=== PATIENT | male | born 1975 | race Caucasian/White ===

== ENCOUNTER 2021-09-09 19:20 | Inpatient (IN) | payer OTHER, SELFPAY ==
--- NOTE | ~2021-09-09 | FL_ITS ---
EXAMINATION: XR FLUOROSCOPY WITH IMAGES CLINICAL INFORMATION: Cystoscopy, retrograde stent placement COMPARISON: CT abdomen on 09/09/2021 TECHNIQUE: Fluoroscopy performed by Dr. Rene Hayden. Fluoroscopy time: 39.1 seconds DAP: 18.17 mGy Images: 3 FINDINGS: Fluoroscopy provided during right-sided retrograde nephrostogram and ureteral stent placement. FL/FL guidance in OR IMPRESSION: Fluoroscopy by the urology department. Please see operative report for additional information.
--- NOTE | ~2021-09-09 | XR_ITS ---
EXAMINATION: XR ABDOMEN KUB CLINICAL INDICATION: Abdominal pain COMPARISON: None TECHNIQUE: AP view of the abdomen. FINDINGS: The bowel gas pattern is normal with no evidence of ileus or obstruction. No unusual soft tissue calcifications are noted. The bones are unremarkable. XR/XR KUB IMPRESSION: Unremarkable examination.
--- NOTE | ~2021-09-09 | CT_ITS ---
EXAMINATION: CT ABDOMEN AND PELVIS WITHOUT CONTRAST CLINICAL INFORMATION: Right flank and lower abdominal pain COMPARISON: None TECHNIQUE: Multidetector volumetric imaging was performed from the superior aspect of the liver through the pubic symphysis. Sagittal and coronal reformatted images were obtained on the technologist's workstation. This CT examination was performed using dose optimization techniques as appropriate, variously including the following: *Automated exposure control *Adjustment of mA and/or kV according to patient size (this includes techniques or standardized protocols for targeted exams where dose is matched to indication/reason for exam; i.e. extremities or head) *Use of iterative reconstruction technique DLP: 807 mGy-cm FINDINGS: LUNG BASES: The visualized lung bases are unremarkable. LIVER, GALLBLADDER, AND BILIARY TREE: The liver is normal in size, shape, and attenuation. No focal hepatic lesion or biliary ductal dilatation is present. The gallbladder is unremarkable with no evidence of radiopaque gallstones, gallbladder wall thickening, or obvious pericholecystic inflammatory changes. PANCREAS: Unremarkable. SPLEEN: Unremarkable. ADRENAL GLANDS: Unremarkable. KIDNEYS AND URETERS: Right: There is an obstructing 7 x 4 x 8 mm calculus present in the proximal right ureter with associated right-sided hydronephrosis and perinephric stranding. This stone measures 1446 Hounsfield units and is 16.5 cm from the posterior axillary line. No other calculi are seen. No renal masses are seen. Left: Left kidney appears unremarkable aside from the presence of a single punctate 2 mm nonobstructing calculus. Left ureter is normal. BLADDER: Unremarkable. GASTROINTESTINAL TRACT: A small hiatal hernia is present. The small and large bowel are unremarkable. The appendix is unremarkable. ABDOMINAL WALL: No significant hernia is appreciated. LYMPH NODES: Normal. VASCULAR: Unremarkable. PELVIC VISCERA: Prostate and seminal vesicles unremarkable OSSEOUS STRUCTURES: Degenerative changes present in the spine most marked at L5-S1. CT/CT abdomen pelvis wo con IMPRESSION: 1. 7 x 4 x 8 mm obstructing right proximal ureteral calculus with associated hydronephrosis. 2. Tiny punctate nonobstructing left renal calculus. Fleischner guidelines were followed.
[2021-09-09 19:26] VITALS: BP 186/116; PULSE 91; RESP 18; TEMP 36.9; O2SAT 96; BMI 30.4
[2021-09-09] MEDS: Ondansetron ODT 4 MG TAB.RAPDIS TRANSLINGU (21:02)
--- NOTE | 2021-09-09 21:30 | ED.ABDPAIN ---
HPI - Abdominal Pain General Chief Complaint: Abdominal Pain Stated Complaint: Constipated Time Seen by Provider: 09/09/21 21:12 Source: patient Mode of arrival: ambulatory Limitations: no limitations History of Present Illness HPI narrative: Patient 45 years old with no significant past medical history been having pain in the right flank and right abdomen for last 1 week after returning from fluid unable to move his bowels since then feel nauseated vomited multiple x2 days ago and today also 1 time felt very restless and uncomfortable pain is mostly in right flank and right lower abdomen no fever no chills no urinary symptoms no hematuria feels abdomen is slightly bloated Related Data Allergies Allergy/AdvReac Type Severity Reaction Status Date / Time No Known Allergies Allergy Verified 09/09/21 20:50 Review of Systems Review of Systems Yes all other systems are reviewed and are negative [facility] Social History Social History Advance Directives: No Advance Directives Information Provided: No Physical Exam ED Vital Signs: Vital Signs - 24 hr 09/09/21 19:26 09/09/21 21:31 Temperature 98.4 F 98.8 F Pulse Rate 91 90 Respiratory Rate 18 18 Blood Pressure 186/116 H 193/120 H Pulse Oximetry 96 97 BMI result Body Mass Index 30.4 Appearance: Alert. Oriented X3. Moderate to severe distress actively vomiting Eyes: No pallor/ icterus ENT: Pharynx normal. Oral Mucosa moist Neck: Normal inspection. Neck supple. CVS: Normal heart rate and rhythm. Pulses normal. Respiratory: No respiratory distress. Equal air entry bilateral, no wheezing/rales/rhonchi Abdomen: Soft , tenderness in right mid quadrant with guarding no rebound tenderness sounds are present, no mass palpable, R CVA tenderness Skin: Skin warm and dry. Normal skin color. Normal skin turgor. Extremities: No lower extremity edema. No calf tenderness Neuro: Oriented X 3. No motor deficit. No sensory deficit.No cerebellar signs , cranial nerves II-XII intact MDM - Abdominal Pain MDM Narrative Medical decision making narrative: Patient with no significant past medical history with acute onset of right workup showed 7 x 4 x 8 mm right proximal ureteric stone with hydronephrosis lab workup showed creatinine of 1.87. Patient still having pain case discussed with Dr. Hayden urologist will admit patient to hospitalist service plan to do lithotripsy in the morning Lab Data Attestation: I reviewed the patient's lab results. Result diagrams: 09/09/21 21:38 09/09/21 21:38 Labs: Lab Results 09/09/21 09/09/21 09/09/21 Range/Units 21:38 21:38 21:38 WBC 10.3 (4.8-10.8) X10*3/uL RBC 5.73 (4.60-5.80) X10*6/uL Hgb 16.8 (14.0-18.0) g/dl Hct 49.5 (42.0-52.0) % MCV 86.4 (80.0-98.0) fL MCH 29.3 (27.0-33.0) pg MCHC 33.9 (31.0-36.0) g/dl RDW 12.2 (11.0-16.0) % Plt Count 238 (160-400) X10*3/uL MPV 9.0 L (9.4-12.4) fL Immature Gran % (Auto) 0.2 (0.0-0.4) % Neut % (Auto) 83.8 H (45-73) % Lymph % (Auto) 9.6 L (20-40) % [place] % (Auto) 5.8 (2-11) % Eos % (Auto) 0.3 (0-4) % Baso % (Auto) 0.3 (0-2) % Lymph # (Auto) 1.0 L (1.2-4.9) X10*3/uL [place] # (Auto) 0.6 (0.1-1.2) X10*3/uL Eos # (Auto) 0.0 (0.0-0.4) X10*3/uL Baso # (Auto) 0.0 (0.0-0.2) X10*3/uL Abs Immat Gran (auto) 0.02 (0.00-0.03) X10*3/uL Absolute Neuts (auto) 8.6 H (2.0-8.3) x10*3/uL Absolute Nucleated RBC 0.000 (0.0-0.012) X10*3/uL Nucleated RBC % (auto) 0.0 (0.0-0.2) /100WBC Sodium 141 (135-145) mmol/L Potassium 4.3 (3.3-5.1) mmol/L Chloride 103 (96-108) mmol/L Carbon Dioxide 27 (22-29) mmol/L Anion Gap 15 (12-20) BUN 15 (9-16) mg/dL Creatinine 1.87 H (0.5-1.4) mg/dL Estim Creat Clear Calc 74.2 Estimated GFR 39 Random Glucose 117 H (60-115) mg/dL Calcium 9.5 (8.4-10.2) mg/dL Total Bilirubin 0.9 (0.0-1.0) mg/dL AST 19 (5-37) U/L ALT 19 (0-40) U/L Alkaline Phosphatase 51 (39-117) U/L Total Protein 7.5 (6.5-8.0) g/dL Albumin 4.7 (3.5-5.0) g/dL Lipase 46 (8-78) U/L COVID-19 (GUERRERO) Negative (Negative) COVID-19 Clin Com See Note Imaging Data CT scan - abdomen: Attestation: I personally reviewed and interpreted this imaging study as follows: Radiologist's impression: [address] [address] [address] Scan Report Signed Patient: Mike Yin MR#: [id number] : 1975 Acct:[id number] Age/Sex: 45 / M ADM Date: 09/09/21 Loc: .ED Attending Dr: Ordering Physician: Danilo Garcia MD Date of Service: 09/09/21 Procedure(s): CT abdomen pelvis wo con Accession Number(s): [id number] cc: Danilo Garcia MD~ EXAMINATION: CT ABDOMEN AND PELVIS WITHOUT CONTRAST? CLINICAL INFORMATION: Right flank and lower abdominal pain? COMPARISON: None? TECHNIQUE: Multidetector volumetric imaging was performed from the superior aspect of the liver through the pubic symphysis. Sagittal and coronal reformatted images were obtained on the technologist's workstation.? This CT examination was performed using dose optimization techniques as appropriate, variously including the following: *Automated exposure control *Adjustment of mA and/or kV according to patient size (this includes techniques or standardized protocols for targeted exams where dose is matched to indication/reason for exam; i.e. extremities or head) *Use of iterative reconstruction technique DLP: 807 mGy-cm FINDINGS: LUNG BASES: The visualized lung bases are unremarkable.? LIVER, GALLBLADDER, AND BILIARY TREE: The liver is normal in size, shape, and attenuation. No focal hepatic lesion or biliary ductal dilatation is present. The gallbladder is unremarkable with no evidence of radiopaque gallstones, gallbladder wall thickening, or obvious pericholecystic inflammatory changes.? PANCREAS: Unremarkable.? SPLEEN: Unremarkable.? ADRENAL GLANDS: Unremarkable.? KIDNEYS AND URETERS: Right: There is an obstructing 7 x 4 x 8 mm calculus present in the proximal right ureter with associated right-sided hydronephrosis and perinephric stranding. This stone measures 1446 Hounsfield units and is 16.5 cm from the posterior axillary line. No other calculi are seen. No renal masses are seen. Left: Left kidney appears unremarkable aside from the presence of a single punctate 2 mm nonobstructing calculus. Left ureter is normal. BLADDER: Unremarkable.? GASTROINTESTINAL TRACT: A small hiatal hernia is present. The small and large bowel are unremarkable. The appendix is unremarkable.? ABDOMINAL WALL: No significant hernia is appreciated.? LYMPH NODES: Normal. VASCULAR: Unremarkable. PELVIC VISCERA: Prostate and seminal vesicles unremarkable? OSSEOUS STRUCTURES: Degenerative changes present in the spine most marked at L5-S1.? CT/CT abdomen pelvis wo con IMPRESSION: 1.? 7 x 4 x 8 mm obstructing right proximal ureteral calculus with associated hydronephrosis. 2.? Tiny punctate nonobstructing left renal calculus.? ? Fleischner guidelines were followed. Dictated By: Manuelito Vyas MD Signed By: <Electronically signed by Manuelito Vyas MD in OV> 09/09/212209 DD/ 56 TD/TT:? Ct Tech: VADIM Critical Care Time Critical Care Time Critical Care Time: Yes Total Critical Care Time: 35 Attestation: I spent 35 minutes of critical care, with interventions, assessments, speaking to patient, consultants, and family. Discharge Plan Discharge Clinical Impression: Kidney stone on right side, Acute renal failure Patient Disposition: Admitted As Inpatient
[2021-09-09 21:31] VITALS: BP 193/120; PULSE 90; RESP 18; TEMP 37.1; O2SAT 97
[2021-09-09 21:48] LABS: MANUAL DIFF FLAG NO
[2021-09-09 21:52] LABS: Basophils Percent Auto 0.3 % (0-2); Eosinophils Percent Auto 0.3 % (0-4); Hematocrit 49.5 % (42.0-52.0); Hemoglobin 16.8 g/dl (14.0-18.0); Imm Gran Abs Auto 0.02 X10*3/uL (0.00-0.03); Imm Gran Pct Auto 0.2 % (0.0-0.4); Lymphocytes Percent Auto 9.6 % (20-40); Mean Corpuscular HGB Conc 33.9 g/dl (31.0-36.0); Mean Corpuscular Hemoglobin 29.3 pg (27.0-33.0); Mean Corpuscular Volume 86.4 fL (80.0-98.0); Monocytes Absolute Auto 0.6 X10*3/uL (0.1-1.2); Monocytes Percent Auto 5.8 % (2-11); Neutrophils Absolute Auto 8.6 x10*3/uL (2.0-8.3); Neutrophils Percent Auto 83.8 % (45-73); Platelet Count 238 X10*3/uL (160-400); Red Blood Count 5.73 X10*6/uL (4.60-5.80); Red Cell Distribution Width 12.2 % (11.0-16.0); White Blood Count 10.3 X10*3/uL (4.8-10.8)
[2021-09-09] MEDS: ondansetron HCL 4 MG/2 ML VIAL IVPUSH (21:55)
[2021-09-09] MEDS: Morphine Sulfate 4 MG/ML CARTRIDGE IVPUSH (21:55)
[2021-09-09] MEDS: 0.9 % Sodium Chloride 1,000 ML 999 ML IV ×2 (21:55→22:30)
[2021-09-09 22:05] LABS: COVID-19 Test Negative (Negative)
[2021-09-09 22:09] LABS: Alanine Aminotransferase 19 U/L (0-40); Albumin Level 4.7 g/dL (3.5-5.0); Alkaline Phosphatase 51 U/L (39-117); Anion Gap 15 (12-20); Aspartate Amino Transferase 19 U/L (5-37); Bilirubin Total 0.9 mg/dL (0.0-1.0); Blood Urea Nitrogen 15 mg/dL (9-16); Calcium 9.5 mg/dL (8.4-10.2); Carbon Dioxide 27 mmol/L (22-29); Chloride 103 mmol/L (96-108); Creatinine Clr Calc Pharmacy 74.2; Estimated Glomerular Filt Rate 39; Glucose Random 117 mg/dL (60-115); Lipase 46 U/L (8-78); Potassium 4.3 mmol/L (3.3-5.1); Sodium 141 mmol/L (135-145); Total Protein 7.5 g/dL (6.5-8.0)
[2021-09-09] MEDS: HYDROmorphone HCl 1 MG/ML SYRINGE IVPUSH (22:28)
--- NOTE | 2021-09-09 22:43 | PM.IMHP ---
History of Present Illness Date of Service: 09/09/21 Chief Complaint: Right flank pain 45-year-old male with the past medical history of hypothyroidism, depression presented to the hospital today with a chief complaint of nausea/vomiting/right flank pain. Patient reports that over the past 1 week she has been having nausea vomiting and abdominal discomfort; for the past 2 days he has been having increased pain in the right flank; hence decided to come to the ER for further evaluation. Denies any fever chills cough. Denies any blood in the urine. Denies any chest pain or palpitations. Review of all other systems is negative except mentioned above ER course: Per ER team patient noted to have right flank tenderness; CT scan showed right proximal ureteral calculus-obstructing as well as hydronephrosis. Notified Dr. Hayden from Urology who suggested admission to the medicine service. Patient also noted to have MATTY. [facility] Pertinent family history: Denies any family history of kidney stones Social History Advance Directives: No Advance Directives Information Provided: No Meds Allergies Allergy/AdvReac Type Severity Reaction Status Date / Time No Known Allergies Allergy Verified 09/09/21 20:50 Active Medications: Current Medications Sodium Chloride (Ns) 1,000 mls @ 999 mls/hr IV .Q1H1M ONE Stop: 09/09/21 23:24 Last Admin: 09/09/21 22:30 Dose: 999 mls/hr Documented by: Home Medications Medication Instructions Recorded Confirmed Last Taken Type levothyroxine 88 mcg tablet 1 tab PO DAILY 09/10/21 09/10/21 Unknown History (Synthroid) sertraline 50 mg tablet 1 tab PO DAILY 09/10/21 09/10/21 Unknown History Physical Exam Vital Signs and Narrative: Vital Signs: Last Vital Signs Temp 98.8 F 09/09/21 21:31 Pulse 90 09/09/21 21:31 Resp 18 09/09/21 21:31 BP 193/120 H 09/09/21 21:31 Pulse Ox 97 09/09/21 21:31 BMI result Body Mass Index 30.4 Gen: Appears be in no acute distress HEENT: NCAT, Moist mucosa. Pulmonary: Vesicular breath sounds, fair air entry CVS: Normal S1-S2 Abdomen: BS+, Soft, Nontender; tender in the right flank Extremities: Warm well perfused Neuro: Alert and awake. Results Labs CBC and Chem 7: 09/09/21 21:38 09/09/21 21:38 Labs: Laboratory Results - last 24 hr 09/09/21 09/09/21 09/09/21 21:38 21:38 21:38 MCV 86.4 MCH 29.3 MCHC 33.9 RDW 12.2 Plt Count 238 MPV 9.0 L Immature Gran % (Auto) 0.2 Neut % (Auto) 83.8 H Lymph % (Auto) 9.6 L [place] % (Auto) 5.8 Eos % (Auto) 0.3 Baso % (Auto) 0.3 Lymph # (Auto) 1.0 L [place] # (Auto) 0.6 Eos # (Auto) 0.0 Baso # (Auto) 0.0 Abs Immat Gran (auto) 0.02 Absolute Neuts (auto) 8.6 H Absolute Nucleated RBC 0.000 Nucleated RBC % (auto) 0.0 Anion Gap 15 Estim Creat Clear Calc 74.2 Estimated GFR 39 Random Glucose 117 H Calcium 9.5 Total Bilirubin 0.9 AST 19 ALT 19 Alkaline Phosphatase 51 Total Protein 7.5 Albumin 4.7 Lipase 46 COVID-19 (GUERRERO) Negative COVID-19 Clin Com See Note Imaging Radiologist's Impressions: Impressions KUB X-Ray 09/09/21 19:40 IMPRESSION: Unremarkable examination. Abdomen/Pelvis CT 09/09/21 21:57 IMPRESSION: 1. 7 x 4 x 8 mm obstructing right proximal ureteral calculus with associated hydronephrosis. 2. Tiny punctate nonobstructing left renal calculus. Fleischner guidelines were followed. Assessment and Plan (1) Ureteral calculi: Status: Acute (2) Hydronephrosis: Status: Acute (3) Hypertensive urgency: Status: Acute (4) MATTY (acute kidney injury): Status: Acute Plan 45-year-old male with no significant past medical history presented to the hospital with a chief complaint of right flank pain/nausea/vomiting; noted to have right ureteral calculus with hydronephrosis as well as MATTY. Admitted for further management. Right ureteral calculus with hydronephrosis: CT scan showed 7x4x8 mm obstructing right proximal ureteral calculus. Neurology consult Dr. Hayden was notified Pain control Urinalysis pending MATTY: Likely prerenal as patient has been having nausea vomiting and poor oral intake over the past few days. Gentle IV fluids. Hypertensive urgency: Likely pain given driven. Pain control. Labetalol p.r.n.. History of hypothyroidism/depression: Continue home levothyroxine/sertraline. DVT prophylaxis: Subcu heparin Code status: Full code Quality Stroke Does the patient have a stroke diagnosis?: No VTE Prior VTE?: No VTE Risk Level:: Medical - moderate - high VTE Device Contraindication: Treatment Not Indicated VTE Drug Contraindication: N/A - Med Ordered
[2021-09-09 23:09] LABS: Appearance Urine CLEAR; Color Urine YELLOW; Glucose Urine UA NEG (NEG); Leukocyte Esterase Urine NEG (NEG); Nitrite Urine NEG (NEG); PH 6.5 (5.0-8.0); UACC Culture Trigger NO; Urine Blood 3+ (NEG); Urine Ketones 40 MG/DL (NEG); Urine Protein NEG (NEG-TRACE)
[2021-09-09 23:22] LABS: WBC Urine 0-2 /HPF (0-4)
[2021-09-09 23:23] LABS: Squamous Epithelial Cell Urine TRACE /LPF
[2021-09-10] VITALS (13 sets, daily range): BP systolic 131–185; BP diastolic 82–109; PULSE 71–89; RESP 14–18; TEMP 36.1–37.2; O2SAT 94–98
[2021-09-10] MEDS: HYDROmorphone HCl 1 MG/ML SYRINGE 0.5 MG IVPUSH ×2 (00:51→18:06)
[2021-09-10] MEDS: Heparin Sodium,Porcine 5,000 UNIT/ML VIAL 5000 UNIT SUBCUT ×2 (00:52→09:05)
--- NOTE | 2021-09-10 01:43 | PC.NURSE ---
Patient arrived in excruciating abdominal pain 10/. iv and labs drawn, ct scan, and kub. CT scan showed large kidney stone being admitted for possible stone removal tomorrow. Urology consult. Will continue with plan of care.
[2021-09-10 06:33] LABS: MANUAL DIFF FLAG NO
--- NOTE | 2021-09-10 06:39 | PHA.MEDREC ---
Pharmacy Consult ? Medication Reconciliation Pharmacy has reviewed the medication reconciliation completed by Sayra. Josefa Sinclair, PharmD
[2021-09-10 06:46] LABS: Basophils Percent Auto 0.3 % (0-2); Eosinophils Percent Auto 0.3 % (0-4); Hematocrit 45.1 % (42.0-52.0); Hemoglobin 15.2 g/dl (14.0-18.0); Imm Gran Abs Auto 0.03 X10*3/uL (0.00-0.03); Imm Gran Pct Auto 0.3 % (0.0-0.4); Lymphocytes Absolute Auto 1.4 X10*3/uL (1.2-4.9); Lymphocytes Percent Auto 15.1 % (20-40); Mean Corpuscular HGB Conc 33.7 g/dl (31.0-36.0); Mean Corpuscular Hemoglobin 29.5 pg (27.0-33.0); Mean Corpuscular Volume 87.4 fL (80.0-98.0); Mean Platelet Volume 9.7 fL (9.4-12.4); Monocytes Absolute Auto 1.1 X10*3/uL (0.1-1.2); Monocytes Percent Auto 11.1 % (2-11); Neutrophils Percent Auto 72.9 % (45-73); Platelet Count 218 X10*3/uL (160-400); Red Blood Count 5.16 X10*6/uL (4.60-5.80); Red Cell Distribution Width 12.2 % (11.0-16.0); White Blood Count 9.6 X10*3/uL (4.8-10.8)
[2021-09-10 07:20] LABS: Anion Gap 15 (12-20); Blood Urea Nitrogen 13 mg/dL (9-16); Calcium 8.3 mg/dL (8.4-10.2); Carbon Dioxide 24 mmol/L (22-29); Chloride 104 mmol/L (96-108); Creatinine Clr Calc Pharmacy 97.7; Estimated Glomerular Filt Rate 54; Glucose Random 97 mg/dL (60-115); Potassium 3.8 mmol/L (3.3-5.1); Sodium 139 mmol/L (135-145)
[2021-09-10] MEDS: Levothyroxine Sodium 88 MCG TABLET PO (09:05)
[2021-09-10] MEDS: Sertraline HCL 50 MG TABLET PO (09:05)
[2021-09-10] MEDS: Acetaminophen 325 MG TABLET 650 MG PO ×2 (09:13→18:05)
--- NOTE | 2021-09-10 09:18 | PC.NURSE ---
medicated for pain w apap, declined dilaudid, nad,, aware npo, ate eggs and toast at 0730
--- NOTE | 2021-09-10 10:06 | MHC.CM.PN ---
Met with patient in regards to discharge planning. Patient lives with his and kids, ambulates independently and had no services prior to coming to the hospital. Patient is employed time checker. No services anticipated to be needed because patient is not homebound. PCP verified. Copy of HCP obtained from PCP. Patient received 3 Pfizer vaccines. Patient's will transport him home when medically stable. Continue to monitor for d/c needs.
--- NOTE | 2021-09-10 11:46 | PC.NURSE ---
patient currently sleeping, vitals have been stable, will continue to monitor.
--- NOTE | 2021-09-10 12:30 | P.PNIM_ITS ---
Subjective Subjective Date of Service: 09/10/21 Interval History: cc: flank pain interval history: intermittent pain Cardiovascular Cardiovascular: Reports no additional cardiovascular complaints Respiratory Respiratory: Reports no additional respiratory complaints Physical Exam Vital Signs: Vital Signs: Last Vital Signs Temp 99.0 F 09/10/21 11:28 Pulse 76 09/10/21 11:28 Resp 16 09/10/21 11:28 BP 173/106 H 09/10/21 11:28 Pulse Ox 94 09/10/21 11:28 O2 Del Method 09/10/21 11:28 BMI result Body Mass Index 30.4 General: AO X 3, no acute distress Resp: CTA bilateral, no accessory muscles used CVS: S1,S2,RRR GI: soft, non tender, non distended Neuro: motor grossly intact, alert Psych: appropriate affect, appropriate insight Objective Data Active Medications Acetaminophen (Acetaminophen 325 Mg Tablet) 650 mg PO Q6H PRN PRN Reason: Pain, Mild (Pain Scale 1-3) Last Admin: 09/10/21 09:13 Dose: 650 mg Documented By: YAZMIN Heparin Sodium (Porcine) (Heparin Sodium,Porcine 5,000 Unit/Ml Vial) 5,000 unit SUBCUT Q8H [facility] Last Admin: 09/10/21 09:05 Dose: 5,000 unit Documented By: YAZMIN Hydromorphone HCl (Hydromorphone Hcl 1 Mg/Ml Syringe) 0.5 mg IVPUSH Q4H PRN; Protocol PRN Reason: Pain, Severe (Pain Scale 7-10) Last Admin: 09/10/21 00:51 Dose: 0.5 mg Documented By: MANPREET Levothyroxine Sodium (Levothyroxine Sodium 88 Mcg Tablet) 88 mcg PO DAILY [facility] Last Admin: 09/10/21 09:05 Dose: 88 mcg Documented By: YAZMIN Melatonin (Melatonin 3 Mg Tablet) 6 mg PO BEDTIME PRN PRN Reason: Insomnia Senna (Sennosides 8.6 Mg Tablet) 17.2 mg PO BEDTIME PRN PRN Reason: Constipation Sertraline HCl (Sertraline Hcl 50 Mg Tablet) 50 mg PO DAILY [facility] Last Admin: 09/10/21 09:05 Dose: 50 mg Documented By: YAZMIN Sodium Chloride (0.9 % Sodium Chloride Flush 3 Ml Syringe) 3 ml IVFLUSH QSHIFT [facility] Last Admin: 09/10/21 03:06 Dose: Not Given Documented By: LAURIE Non-Admin Reason: IV Running Labs CBC & Chem 7: 09/10/21 04:55 09/10/21 04:55 Labs: Laboratory Results - last 24 hr 09/09/21 09/09/21 09/09/21 21:38 21:38 21:38 MCV 86.4 MCH 29.3 MCHC 33.9 RDW 12.2 Plt Count 238 MPV 9.0 L Immature Gran % (Auto) 0.2 Neut % (Auto) 83.8 H Lymph % (Auto) 9.6 L [place] % (Auto) 5.8 Eos % (Auto) 0.3 Baso % (Auto) 0.3 Lymph # (Auto) 1.0 L [place] # (Auto) 0.6 Eos # (Auto) 0.0 Baso # (Auto) 0.0 Abs Immat Gran (auto) 0.02 Absolute Neuts (auto) 8.6 H Absolute Nucleated RBC 0.000 Nucleated RBC % (auto) 0.0 Anion Gap 15 Estim Creat Clear Calc 74.2 Estimated GFR 39 Random Glucose 117 H Calcium 9.5 Total Bilirubin 0.9 AST 19 ALT 19 Alkaline Phosphatase 51 Total Protein 7.5 Albumin 4.7 Lipase 46 Urine Color Urine Appearance Urine pH Ur Specific [place] Urine Protein Urine Glucose (UA) Urine Ketones Urine Blood Urine Nitrite Ur Leukocyte Esterase Urine RBC Urine WBC Ur Squamous Epith Cells Urine Bacteria COVID-19 ([facility]ERO) Negative COVID-19 Clin Com See Note 09/09/21 09/10/21 09/10/21 22:59 04:55 04:55 MCV 87.4 MCH 29.5 MCHC 33.7 RDW 12.2 Plt Count 218 MPV 9.7 Immature Gran % (Auto) 0.3 Neut % (Auto) 72.9 Lymph % (Auto) 15.1 L [place] % (Auto) 11.1 H Eos % (Auto) 0.3 Baso % (Auto) 0.3 Lymph # (Auto) 1.4 [place] # (Auto) 1.1 Eos # (Auto) 0.0 Baso # (Auto) 0.0 Abs Immat Gran (auto) 0.03 Absolute Neuts (auto) 7.0 Absolute Nucleated RBC 0.000 Nucleated RBC % (auto) 0.0 Anion Gap 15 Estim Creat Clear Calc 97.7 Estimated GFR 54 Random Glucose 97 Calcium 8.3 L D Total Bilirubin AST ALT Alkaline Phosphatase Total Protein Albumin Lipase Urine Color YELLOW Urine Appearance CLEAR Urine pH 6.5 Ur Specific [place] 1.020 Urine Protein NEG Urine Glucose (UA) NEG Urine Ketones 40 Urine Blood 3+ H Urine Nitrite NEG Ur Leukocyte Esterase NEG Urine RBC 10-14 H Urine WBC 0-2 Ur Squamous Epith Cells TRACE Urine Bacteria NONE COVID-19 ([facility]) COVID-19 Clin Com Assessment and Plan (1) MATTY (acute kidney injury): Status: Acute Plan 45M presented with right flank pain, found to have matty and obstructing right stone with hydronephrosis Right nephrolithiasis with hydronephrosis and flank pain complicated by acute kidney injury Pain control Plan for cystoscopy today MATTY likely mostly prerenal, possible component obstruction, monitor Hypertension Possibly has underlying hypertension, versus due to pain Monitor for now, may need to start treatment as outpatient. Hypothyroid Synthroid Mood disorder Sertraline DVT prophylaxis with heparin Full code reason for continued hospitalization: need for intervention inpaitent due to ongoing sever pain needing iv opiates Quality Stroke Does the patient have a stroke diagnosis?: No VTE Prior VTE?: No VTE Risk Level:: Medical - moderate - high VTE Device Contraindication: Treatment Not Indicated VTE Drug Contraindication: N/A - Med Ordered
--- NOTE | 2021-09-10 13:24 | PC.NURSE ---
pt continues to sleep, family at bedside, will continue to monitor
--- NOTE | 2021-09-10 15:58 | P.CONAN_ITS ---
HPI - Anesthesia Eval Consult details Narrative: 45 M for cysto GERD PMFSH Active Problems Active Problems: All Active Problems (Updated 09/09/21 @ 22:44 by Zachary Burks MD) MATTY (acute kidney injury) (Acute) Hypertensive urgency (Acute) Hydronephrosis (Acute) Ureteral calculi (Acute) Past Medical History Functional capacity: independent ambulation Family History Family history of problems with anesthesia: No Surgical History History of Problems with Anesthesia: No Social History Social History service: No Current occupational status: employed Meds Allergies Allergy/AdvReac Type Severity Reaction Status Date / Time No Known Allergies Allergy Verified 09/09/21 20:50 Active Medications: Current Medications Acetaminophen (Acetaminophen 325 Mg Tablet) 650 mg PO Q6H PRN PRN Reason: Pain, Mild (Pain Scale 1-3) Last Admin: 09/10/21 09:13 Dose: 650 mg Heparin Sodium (Porcine) (Heparin Sodium,Porcine 5,000 Unit/Ml Vial) 5,000 unit SUBCUT Q8H [facility] Last Admin: 09/10/21 09:05 Dose: 5,000 unit Hydromorphone HCl (Hydromorphone Hcl 1 Mg/Ml Syringe) 0.5 mg IVPUSH Q4H PRN; Protocol PRN Reason: Pain, Severe (Pain Scale 7-10) Last Admin: 09/10/21 00:51 Dose: 0.5 mg Levothyroxine Sodium (Levothyroxine Sodium 88 Mcg Tablet) 88 mcg PO DAILY [facility] Last Admin: 09/10/21 09:05 Dose: 88 mcg Melatonin (Melatonin 3 Mg Tablet) 6 mg PO BEDTIME PRN PRN Reason: Insomnia Senna (Sennosides 8.6 Mg Tablet) 17.2 mg PO BEDTIME PRN PRN Reason: Constipation Sertraline HCl (Sertraline Hcl 50 Mg Tablet) 50 mg PO DAILY [facility] Last Admin: 09/10/21 09:05 Dose: 50 mg Sodium Chloride (0.9 % Sodium Chloride Flush 3 Ml Syringe) 3 ml IVFLUSH QSHIFT [facility] Last Admin: 09/10/21 03:06 Dose: Not Given Home Medications Medication Instructions Recorded Confirmed Last Taken Type levothyroxine 88 mcg tablet 1 tab PO DAILY 09/10/21 09/10/21 Unknown History (Synthroid) sertraline 50 mg tablet 1 tab PO DAILY 09/10/21 09/10/21 Unknown History Exam Exam Date and Time: September 10, 2021 1558 Height,Weight and Vital Signs: Height 6 ft 7 in Weight 122.47 kg Last Vital Signs Temp 98.8 F 09/10/21 15:40 Pulse 74 09/10/21 15:40 Resp 16 09/10/21 15:40 BP 157/100 H 09/10/21 15:40 Pulse Ox 98 09/10/21 15:40 O2 Del Method 09/10/21 15:40 Pertinent Lab Results Pertinent Lab Results: Laboratory Tests 09/09/21 09/09/21 09/09/21 21:38 21:38 21:38 WBC 10.3 RBC 5.73 Hgb 16.8 Hct 49.5 MCV 86.4 MCH 29.3 MCHC 33.9 RDW 12.2 Plt Count 238 MPV 9.0 L Immature Gran % (Auto) 0.2 Neut % (Auto) 83.8 H Lymph % (Auto) 9.6 L [place] % (Auto) 5.8 Eos % (Auto) 0.3 Baso % (Auto) 0.3 Lymph # (Auto) 1.0 L [place] # (Auto) 0.6 Eos # (Auto) 0.0 Baso # (Auto) 0.0 Abs Immat Gran (auto) 0.02 Absolute Neuts (auto) 8.6 H Absolute Nucleated RBC 0.000 Nucleated RBC % (auto) 0.0 Sodium 141 Potassium 4.3 Chloride 103 Carbon Dioxide 27 Anion Gap 15 BUN 15 Creatinine 1.87 H Estim Creat Clear Calc 74.2 Estimated GFR 39 Random Glucose 117 H Calcium 9.5 Total Bilirubin 0.9 AST 19 ALT 19 Alkaline Phosphatase 51 Total Protein 7.5 Albumin 4.7 Lipase 46 Urine Color Urine Appearance Urine pH Ur Specific [place] Urine Protein Urine Glucose (UA) Urine Ketones Urine Blood Urine Nitrite Ur Leukocyte Esterase Urine RBC Urine WBC Ur Squamous Epith Cells Urine Bacteria COVID-19 ([facility]) Negative COVID-19 Clin Com See Note 09/09/21 09/10/21 09/10/21 22:59 04:55 04:55 WBC 9.6 RBC 5.16 Hgb 15.2 Hct 45.1 MCV 87.4 MCH 29.5 MCHC 33.7 RDW 12.2 Plt Count 218 MPV 9.7 Immature Gran % (Auto) 0.3 Neut % (Auto) 72.9 Lymph % (Auto) 15.1 L [place] % (Auto) 11.1 H Eos % (Auto) 0.3 Baso % (Auto) 0.3 Lymph # (Auto) 1.4 [place] # (Auto) 1.1 Eos # (Auto) 0.0 Baso # (Auto) 0.0 Abs Immat Gran (auto) 0.03 Absolute Neuts (auto) 7.0 Absolute Nucleated RBC 0.000 Nucleated RBC % (auto) 0.0 Sodium 139 Potassium 3.8 Chloride 104 Carbon Dioxide 24 Anion Gap 15 BUN 13 Creatinine 1.42 H Estim Creat Clear Calc 97.7 Estimated GFR 54 Random Glucose 97 Calcium 8.3 L D Total Bilirubin AST ALT Alkaline Phosphatase Total Protein Albumin Lipase Urine Color YELLOW Urine Appearance CLEAR Urine pH 6.5 Ur Specific [place] 1.020 Urine Protein NEG Urine Glucose (UA) NEG Urine Ketones 40 Urine Blood 3+ H Urine Nitrite NEG Ur Leukocyte Esterase NEG Urine RBC 10-14 H Urine WBC 0-2 Ur Squamous Epith Cells TRACE Urine Bacteria NONE COVID-19 ([facility]) COVID-19 Clin Com Airway Mallampati Class: III TM Dist: >3cm Neck ROM: Full Loose/Missing/Broken Teeth: Yes (chipped teeth ) Assessment and Plan Assessment Anesthesia Assessment: Anesthesia Plan Discussed and Chart Reviewed Final Anesthetic Review Family History of Problems with Anesthesia: No History of Problems with Anesthesia: No NPO: Yes ASA Class: II and Emergency Final Preanesthetic Review: Meds/Allgs Chart Reviewed, Consent Obtained/Reviewed and Anes Risks/Benef Reviewed Patient Risk: Intermediate Procedure Risk: Intermediate Anesthetic Plan Anesthetic Plan: GA Disposition: Standard PACU
--- NOTE | 2021-09-10 16:14 | PM.UROCN ---
History of Present Illness Consult details Consult date: 09/10/21 Narrative: Mike is a 45-year-old male Present to hospital with right-sided flank pain 7 mm right-sided proximal ureteric stone associated with hydronephrosis Creatinine 1.4, WBC 9.6, UA 3+ blood, 2+ protein Recommendation for cystoscopy, right retrograde, right stent placement and follow-up definitive procedure Review of Systems Constitutional: Constitutional: Denies chills and Denies fever(s) Cardiovascular: Cardiovascular: Reports no additional cardiovascular complaints and Denies syncope Respiratory: Respiratory: Denies cough Gastrointestinal: Gastrointestinal: Denies abdominal pain and Denies heartburn Genitourinary: Genitourinary: Reports as per HPI and Denies change in libido Neurologic: Denies syncope Psychiatric: Psychiatric: Denies change in libido Endocrine: Endocrine: Denies change in libido [facility] Past Medical History Functional capacity: independent ambulation Social History Social History service: No Current occupational status: employed Meds Allergies Allergy/AdvReac Type Severity Reaction Status Date / Time No Known Allergies Allergy Verified 09/09/21 20:50 Active Medications: Current Medications Acetaminophen (Acetaminophen 325 Mg Tablet) 650 mg PO Q6H PRN PRN Reason: Pain, Mild (Pain Scale 1-3) Last Admin: 09/10/21 09:13 Dose: 650 mg Heparin Sodium (Porcine) (Heparin Sodium,Porcine 5,000 Unit/Ml Vial) 5,000 unit SUBCUT Q8H [facility] Last Admin: 09/10/21 09:05 Dose: 5,000 unit Hydromorphone HCl (Hydromorphone Hcl 1 Mg/Ml Syringe) 0.5 mg IVPUSH Q4H PRN; Protocol PRN Reason: Pain, Severe (Pain Scale 7-10) Last Admin: 09/10/21 00:51 Dose: 0.5 mg Levothyroxine Sodium (Levothyroxine Sodium 88 Mcg Tablet) 88 mcg PO DAILY [facility] Last Admin: 09/10/21 09:05 Dose: 88 mcg Melatonin (Melatonin 3 Mg Tablet) 6 mg PO BEDTIME PRN PRN Reason: Insomnia Senna (Sennosides 8.6 Mg Tablet) 17.2 mg PO BEDTIME PRN PRN Reason: Constipation Sertraline HCl (Sertraline Hcl 50 Mg Tablet) 50 mg PO DAILY [facility] Last Admin: 09/10/21 09:05 Dose: 50 mg Sodium Chloride (0.9 % Sodium Chloride Flush 3 Ml Syringe) 3 ml IVFLUSH QSHIFT [facility] Last Admin: 09/10/21 03:06 Dose: Not Given Home Medications Medication Instructions Recorded Confirmed Last Taken Type levothyroxine 88 mcg tablet 1 tab PO DAILY 09/10/21 09/10/21 Unknown History (Synthroid) sertraline 50 mg tablet 1 tab PO DAILY 09/10/21 09/10/21 Unknown History Physical Exam Vital Signs: Vital Signs: Last Vital Signs Temp 97.9 F 09/10/21 16:04 Pulse 89 09/10/21 16:13 Resp 18 09/10/21 16:13 BP 137/82 09/10/21 16:13 Pulse Ox 97 09/10/21 16:13 O2 Del Method 09/10/21 16:13 BMI result Body Mass Index 30.4 Const: General: cooperative, healthy appearing, comfortable and no acute distress Orientation/consciousness: patient oriented x3 HEENT: Face and sinus: Yes normal facial exam Mouth: moist mucous membranes Neck: Neck: Yes normal visual inspection, Yes full ROM and Yes trachea midline Chest: Chest palpation & inspection: normal inspection of the chest Resp: Effort & Inspection: normal respiratory effort, able to speak in complete sentences and no respiratory distress GI: Inspection: Yes normal to inspection Back/Spine/Pelvis: Cervical Spine: normal cervical lordosis Thoracic/Lumbar Spine: thoracic and lumbar spine normal to inspection Skin: General skin exam: no rashes or lesions noted Neuro: General: patient oriented x3, gait normal, tone normal and moves all extremities Extrem: General: Yes normal to inspection and Yes capillary refill normal Results Labs Result diagrams: 09/10/21 04:55 09/10/21 04:55 Labs: Abnormal lab results 09/09/21 09/09/21 09/09/21 Range/Units 21:38 21:38 22:59 MPV 9.0 L (9.4-12.4) fL Neut % (Auto) 83.8 H (45-73) % Lymph % (Auto) 9.6 L (20-40) % [place] % (Auto) (2-11) % Lymph # (Auto) 1.0 L (1.2-4.9) X10*3/uL Absolute Neuts (auto) 8.6 H (2.0-8.3) x10*3/uL Creatinine 1.87 H (0.5-1.4) mg/dL Random Glucose 117 H (60-115) mg/dL Calcium (8.4-10.2) mg/dL Urine Blood 3+ H (NEG) Urine RBC 10-14 H (0) /HPF 09/10/21 09/10/21 Range/Units 04:55 04:55 MPV (9.4-12.4) fL Neut % (Auto) (45-73) % Lymph % (Auto) 15.1 L (20-40) % [place] % (Auto) 11.1 H (2-11) % Lymph # (Auto) (1.2-4.9) X10*3/uL Absolute Neuts (auto) (2.0-8.3) x10*3/uL Creatinine 1.42 H (0.5-1.4) mg/dL Random Glucose (60-115) mg/dL Calcium 8.3 L D (8.4-10.2) mg/dL Urine Blood (NEG) Urine RBC (0) /HPF Short CBC 09/09/21 09/10/21 Range/Units 21:38 04:55 WBC 10.3 9.6 (4.8-10.8) X10*3/uL Hgb 16.8 15.2 (14.0-18.0) g/dl Hct 49.5 45.1 (42.0-52.0) % Plt Count 238 218 (160-400) X10*3/uL BMP 09/09/21 09/10/21 21:38 04:55 Sodium 141 139 Potassium 4.3 3.8 Chloride 103 104 Carbon Dioxide 27 24 BUN 15 13 Creatinine 1.87 H 1.42 H Calcium 9.5 8.3 L D Liver Function 09/09/21 Range/Units 21:38 Total Bilirubin 0.9 (0.0-1.0) mg/dL AST 19 (5-37) U/L ALT 19 (0-40) U/L Alkaline Phosphatase 51 (39-117) U/L Albumin 4.7 (3.5-5.0) g/dL Urine 09/09/21 Range/Units 22:59 Urine Color YELLOW Urine Appearance CLEAR Urine pH 6.5 (5.0-8.0) Ur Specific [place] 1.020 (1.005-1.025) Urine Protein NEG (NEG-TRACE) MG/DL Urine Glucose (UA) NEG (NEG) MG/DL All other labs normal. Assessment and Plan (1) Ureteral calculi: Status: Acute (2) Hydronephrosis: Status: Acute Plan Risks, benefits and alternatives to therapy were discussed. These include but are not limited to infection, bleeding, damage to local organs and tissues, need for further interventions. Anesthetic risks regarding cardiac arrhythmia, blood clots, and potential mortality were discussed. The patient understands the typical recovery time and the outpatient nature of the procedure. After consideration of these risks the patient gives full informed consent and they wish to move ahead with the procedure. Cystoscopy, right retrograde, right stent placement Procedures Date of Service Date of Service: 09/10/21
--- NOTE | 2021-09-10 16:35 | MHC.SHP ---
Pre-Procedural Eval Section A Date of Service: 09/10/21 The patient is an INPATIENT: Yes Changes since office visit: No Cold of Flu in the past 2 weeks, No New Medical Problems, No Changes in Medication and No Patient answered all questions The History & Physical has been completed within 30 days and I have reviewed it.: Yes Section B Chief Complaint: Renal colic Details of Present Illness: right retrograde stent placement Allergies: Allergies Allergy/AdvReac Type Severity Reaction Status Date / Time No Known Allergies Allergy Verified 09/09/21 20:50 Plan Diagnosis/Plan: Unchanged I have reviewed the history and physical and performed a pertinent physical examination on my patient. No changes have occurred unless specified.
--- NOTE | 2021-09-10 17:03 | P.OP_ITS ---
Operative Note Operative Note Date of Service: 09/10/21 Narrative: PreOperative Diagnosis: right proximal stone Post Operative Diagnosis: same Procedure: cysto, right retrograde, stent placement Surgeon: Dr Rene Hayden Anesthesia: LMA Indications for procedure: obstructing stone 10 mm Procedure: After informed consent was verified the patient was brought to the operating room and placed in a supine position. Anesthesia was administered per protocol. The patient was placed in modified dorsal lithotomy position and prepped and draped in a sterile fashion. A safety pause time-out was performed. Laterality of procedure and antibiotics were confirmed. appropriate imaging was available A 22 [place] cystoscope was introduced per urethra. No abnormality was noted. Both ureteric orifices were seen in a normal position. The right ureter was cannulated with an open ended catheter and a retrograde examination was performed. filling defect in proximal ureter . A Sensor guidewire was placed under fluoroscopy and a good coil was seen within the renal pelvis. A 6Fr x variable length was advanced over the wire and up to the level of the renal pelvis under fluoroscopic and direct visualization. The stent was seen with appropriate coil within the renal pelvis and in the bladder after deployment. The patient tolerated the procedure well and was transferred in stable condition to the recovery area. Pathology: none Drains: cook 6F x variable JJ
[2021-09-10] MEDS: Phenazopyridine HCL 100 MG TABLET PO (18:06)
--- NOTE | 2021-09-10 18:48 | PM.DS ---
DS: Providers Provider Date of Service: 09/10/21 Date of admission: 09/09/21 22:41 Primary care physician: Alvin Oh MD Consults: 09/09/21 22:40 Consult to Urology Routine Consulting Provider: Rene Hayden Reason for consultation: Renal colic with hydronephrosis DS: Diagnosis Discharge Diagnosis (1) Ureteral calculi: Status: Acute (2) Hydronephrosis: Status: Acute DS: Summary Hospital Course Hospital Course: from initial hpi: Chief Complaint: Right flank pain 45-year-old male with the past medical history of hypothyroidism, depression presented to the hospital today with a chief complaint of nausea/vomiting/right flank pain.? Patient reports that over the past 1 week she has been having nausea vomiting and abdominal discomfort; for the past 2 days he has been having increased pain in the right flank; hence decided to come to the ER for further evaluation.? Denies any fever chills cough.? Denies any blood in the urine.? Denies any chest pain or palpitations.? Review of all other systems is negative except mentioned above ER course: Per ER team patient noted to have right flank tenderness; CT scan showed right proximal ureteral calculus-obstructing as well as hydronephrosis.? Notified Dr. Hayden from Urology who suggested admission to the medicine service.? Patient also noted to have MATTY. hospital course: patient was admitted for flank pain from obstructing right ureteral stone complicated by hydronephrosis and MATTY. he was given pain cotnrol, fluids. renal function improved. he underwent cystoscopy with stent placement. course was complicated by elevated blood pressures. he will be discharged home on flomax, should follow up with urology and follow up bmp. will hold off on antihypertensives for now, bp should be monitored closely and bp meds started if persistently elevated. for hypothyroid continued on synthroid, for mood disorder continued on sertraline. Time Spent with Patient Time attestation: Total time spent providing and/or coordinating discharge services: Discharge coordination time: Greater than 30 minutes Quality: Safe Use of Opioids Does Pt have an Active Cancer Diagnosis on the Problem List?: No Quality: Stroke Does the patient have a stroke diagnosis?: No Physical Exam Vital Signs: Vital Signs: Last Vital Signs Temp 97.0 F 09/10/21 18:39 Pulse 71 09/10/21 18:39 Resp 18 09/10/21 18:39 BP 165/98 H 09/10/21 18:39 Pulse Ox 95 09/10/21 18:39 O2 Del Method 09/10/21 18:39 O2 Flow Rate 6 09/10/21 17:22 BMI result Body Mass Index 30.4 General: AO X 3, no acute distress Resp: CTA bilateral, no accessory muscles used CVS: S1,S2,RRR GI: soft, non tender, non distended Neuro: motor grossly intact, alert Psych: appropriate affect, appropriate insight DS: Data Data Completed and Pending Labs on day of discharge: Laboratory Results - last 24 hr 09/09/21 09/09/21 09/09/21 21:38 21:38 21:38 WBC 10.3 RBC 5.73 Hgb 16.8 Hct 49.5 MCV 86.4 MCH 29.3 MCHC 33.9 RDW 12.2 Plt Count 238 MPV 9.0 L Immature Gran % (Auto) 0.2 Neut % (Auto) 83.8 H Lymph % (Auto) 9.6 L [place] % (Auto) 5.8 Eos % (Auto) 0.3 Baso % (Auto) 0.3 Lymph # (Auto) 1.0 L [place] # (Auto) 0.6 Eos # (Auto) 0.0 Baso # (Auto) 0.0 Abs Immat Gran (auto) 0.02 Absolute Neuts (auto) 8.6 H Absolute Nucleated RBC 0.000 Nucleated RBC % (auto) 0.0 Sodium 141 Potassium 4.3 Chloride 103 Carbon Dioxide 27 Anion Gap 15 BUN 15 Creatinine 1.87 H Estim Creat Clear Calc 74.2 Estimated GFR 39 Random Glucose 117 H Calcium 9.5 Total Bilirubin 0.9 AST 19 ALT 19 Alkaline Phosphatase 51 Total Protein 7.5 Albumin 4.7 Lipase 46 Urine Color Urine Appearance Urine pH Ur Specific [place] Urine Protein Urine Glucose (UA) Urine Ketones Urine Blood Urine Nitrite Ur Leukocyte Esterase Urine RBC Urine WBC Ur Squamous Epith Cells Urine Bacteria COVID-19 ([facility]) Negative COVID-19 Clin Com See Note 09/09/21 09/10/21 09/10/21 22:59 04:55 04:55 WBC 9.6 RBC 5.16 Hgb 15.2 Hct 45.1 MCV 87.4 MCH 29.5 MCHC 33.7 RDW 12.2 Plt Count 218 MPV 9.7 Immature Gran % (Auto) 0.3 Neut % (Auto) 72.9 Lymph % (Auto) 15.1 L [place] % (Auto) 11.1 H Eos % (Auto) 0.3 Baso % (Auto) 0.3 Lymph # (Auto) 1.4 [place] # (Auto) 1.1 Eos # (Auto) 0.0 Baso # (Auto) 0.0 Abs Immat Gran (auto) 0.03 Absolute Neuts (auto) 7.0 Absolute Nucleated RBC 0.000 Nucleated RBC % (auto) 0.0 Sodium 139 Potassium 3.8 Chloride 104 Carbon Dioxide 24 Anion Gap 15 BUN 13 Creatinine 1.42 H Estim Creat Clear Calc 97.7 Estimated GFR 54 Random Glucose 97 Calcium 8.3 L D Total Bilirubin AST ALT Alkaline Phosphatase Total Protein Albumin Lipase Urine Color YELLOW Urine Appearance CLEAR Urine pH 6.5 Ur Specific [place] 1.020 Urine Protein NEG Urine Glucose (UA) NEG Urine Ketones 40 Urine Blood 3+ H Urine Nitrite NEG Ur Leukocyte Esterase NEG Urine RBC 10-14 H Urine WBC 0-2 Ur Squamous Epith Cells TRACE Urine Bacteria NONE COVID-19 ([facility]) COVID-19 Clin Com Discharge Plan Discharge Patient Disposition: Home, Self-Care Discharge Diagnosis: ureteric stone, MATTY, htn Referrals: Alvin Oh MD [Primary Care Provider] - 1 Week Discharge Medications: New phenazopyridine [Pyridium] 100 mg tablet 100 mg PO TID PRN (Reason: spasm) 4 Days Qty: 12 0RF tramadol 50 mg tablet 50 mg PO Q6H PRN (Reason: pain (scale score 1-3)) Qty: 8 0RF tamsulosin 0.4 mg capsule 0.4 mg PO BEDTIME 14 Days Qty: 14 0RF Continued sertraline 50 mg tablet 1 tab PO DAILY levothyroxine [Synthroid] 88 mcg tablet 1 tab PO DAILY Discharge Orders: Discharge Order (Routine); Ordered 09/10/21 Ordered By: Rene Hayden Diet: advance to usual diet and low salt diet Activity on Discharge: As tolerated Stand Alone Forms: Patient Portal Discharge page Other Ambulatory Orders: Basic Metabolic Panel Fasting (Routine) Timeframe: 1 Day Facility: [facility] - Location: Laboratory Ordered By: Rene Hayden [place] guidance in OR (Routine) Timeframe: 1 Day Facility: [facility] - Location: Radiology Ordered By: Rene Hayden Schedule for Surgical Procedure (Routine) Location: None Selected Ordered By: Rene Hayden Care Plan Goals: recovery Health Concerns: matty, htn, kidney stone Plan of Treatment: drink plenty of fluids, follow up bmp, follow up with urology, follow up with pcp regarding possible need for treatment of hypertension Assessment: see above
== END 2021-09-10 19:36 | disposition home or self-care (01) | DRG 661 ==
LOC: HO.ED 22:43 → HO.EDOVER 22:48 → HO.S3 09-10 13:42
PROVIDERS: Urology; Admitting Provider Hospitalist; Emergency Provider Internal Medicine; PCP Internal Medicine; Visit Provider Internal Medicine
PROC: 0T768DZ Dilation of Right Ureter with Intraluminal Device, Via Natural or Artificial Opening Endoscopic (ICD-10-PCS; principal; 2021-09-10 16:30)
DX: N13.2 Hydronephrosis with renal and ureteral calculous obstruction (principal); I16.0 Hypertensive urgency; N17.9 Acute kidney failure, unspecified; E03.9 Hypothyroidism, unspecified; F32.A Depression, unspecified; K59.00 Constipation, unspecified; Z20.822 Contact with and (suspected) exposure to COVID-19; Z79.890 Hormone replacement therapy; Z79.899 Other long term (current) drug therapy
CPT/HCPCS: 36415; 74018; 74176; 80048; 80053; 81001; 83690; 85025; 87635; 96361; 96374; 96375; 99285; C1758; C1769; C2617; J1100; J1170; J1885; J1956; J2250; J2270; J2405; J3010; Q9967

== ENCOUNTER 2021-09-11 09:49 | Outpatient (REF) | payer OTHER, SELFPAY ==
[2021-09-11 11:02] LABS: Anion Gap 14 (12-20); Blood Urea Nitrogen 16 mg/dL (9-16); Carbon Dioxide 25 mmol/L (22-29); Chloride 100 mmol/L (96-108); Estimated Glomerular Filt Rate 55; Glucose Fasting 102 mg/dL (60-99); Potassium 3.8 mmol/L (3.3-5.1); Sodium 135 mmol/L (135-145)
== END 2021-09-11 09:50 | disposition home or self-care (01) ==
LOC: HO.LAB 09:49
PROVIDERS: PCP Internal Medicine; Visit Provider Urology
DX: N17.9 Acute kidney failure, unspecified (principal); N20.1 Calculus of ureter
CPT/HCPCS: 36415; 80048

== ENCOUNTER 2021-09-17 06:24 | Day surgery (SDC) | payer OTHER, SELFPAY ==
--- NOTE | 2021-09-16 09:57 | P.CONAN_ITS ---
Documented by User: Mahsa Urena NP 09/16/21 10:00 HPI - Anesthesia Eval Consult details Narrative: 45yo M for Right Lithotripsy ESW s/p cyst, stent 09/2021 with GA-LMA 4 [facility] Active Problems Active Problems: All Active Problems (Updated 09/09/21 @ 22:44 by Zachary Burks MD) MATTY (acute kidney injury) (Acute) Hypertensive urgency (Acute) Hydronephrosis (Acute) Ureteral calculi (Acute) Past Medical History Medical History (Updated 09/16/21 @ 09:58 by Mahsa Urena NP) Depression Hypothyroid Family History Family history of problems with anesthesia: No Surgical History History of Problems with Anesthesia: No Social History Social History Household Members: Family Housing: House Do you presently have visiting nurse or other home services: No Patient Tobacco Use Status: Never used Tobacco Use of substances other than those prescribed or required for medical reasons: No Are you DNR?: No Advance Directives: No Advance Directives Information Provided: Yes service: No Current occupational status: employed Meds Allergies Allergy/AdvReac Type Severity Reaction Status Date / Time No Known Allergies Allergy Verified 09/09/21 20:50 Home Medications Medication Instructions Recorded Confirmed Last Taken Type levothyroxine 88 mcg tablet 1 tab PO DAILY 09/10/21 09/10/21 09/17/21 History (Synthroid) sertraline 50 mg tablet 1 tab PO DAILY 09/10/21 09/10/21 Unknown History Exam Exam Date and Time: September 16, 2021 0957 Assessment and Plan Final Anesthetic Review Family History of Problems with Anesthesia: No History of Problems with Anesthesia: No Documented by User: Katt Padilla MD 09/17/21 08:20 [facility] Past Medical History Medical History (Updated 09/16/21 @ 09:58 by Mahsa Urena NP) Depression Hypothyroid Social History Social History Household Members: Family Housing: House Do you presently have visiting nurse or other home services: No Patient Tobacco Use Status: Never used Tobacco Use of substances other than those prescribed or required for medical reasons: No Are you DNR?: No Advance Directives: No Advance Directives Information Provided: Yes service: No Current occupational status: employed Meds Allergies Allergy/AdvReac Type Severity Reaction Status Date / Time No Known Allergies Allergy Verified 09/09/21 20:50 Home Medications Medication Instructions Recorded Confirmed Last Taken Type levothyroxine 88 mcg tablet 1 tab PO DAILY 09/10/21 09/10/21 09/17/21 History (Synthroid) sertraline 50 mg tablet 1 tab PO DAILY 09/10/21 09/10/21 Unknown History Exam Airway Mallampati Class: II TM Dist: >3cm Neck ROM: Full Heart: rrr Lungs: cta Assessment and Plan Assessment Anesthesia Assessment: Anesthesia Plan Discussed and Chart Reviewed Final Anesthetic Review NPO: Yes ASA Class: II Final Preanesthetic Review: No Changes in Pt Med Stat, Meds/Allgs Chart Reviewed and Consent Obtained/Reviewed Patient Risk: Intermediate Procedure Risk: Intermediate Anesthetic Plan Anesthetic Plan: MAC: Disposition: Standard PACU
--- NOTE | ~2021-09-17 | XR_ITS ---
EXAMINATION: XR ABDOMEN KUB CLINICAL INDICATION: Right stone in the rest of the elbow COMPARISON: None TECHNIQUE: AP view of the abdomen. FINDINGS: There is scattered stool and gas seen throughout the colon without any significant distention. There is a right internal ureteral stent with a radiopaque calculi in the proximal ureter/UVJ measuring 7 mm. There is a small phlebolith in the right pelvis. XR/XR KUB IMPRESSION: There is a 7 mm linear radiopaque calculi right proximal ureter and a right internal ureteral stent. Mild constipation.
[2021-09-17 07:44] VITALS: BP 140/98; PULSE 73; RESP 16; TEMP 36.3; O2SAT 96; BMI 29.2
[2021-09-17] MEDS: Acetaminophen 325 MG TABLET 650 MG PO (07:51)
--- NOTE | 2021-09-17 08:02 | MHC.SHP ---
Pre-Procedural Eval Section A Date of Service: 09/17/21 The patient is an INPATIENT: No Changes since office visit: No Cold of Flu in the past 2 weeks, No New Medical Problems, No Changes in Medication and No Patient answered all questions The History & Physical has been completed within 30 days and I have reviewed it.: Yes Section B Chief Complaint: Calculus of kidney Details of Present Illness: right proximal ureteric stone Present Medications: see Short Stay Collaborative assessment Medical History: No relevant PMH History of Previous Operations: Relevant previous surgery/procedure and date(s) Allergies: Allergies Allergy/AdvReac Type Severity Reaction Status Date / Time No Known Allergies Allergy Verified 09/09/21 20:50 Review of Systems Sugical H&P ROS: Negative: Constitution, Cardiovascular, Respiratory, Neurological, Psychiatric, Hem-Onc, Allergic/Immunologic, Gastrointestinal, Genitourinary, Musculoskeletal, Integumentary, Endocrine and Eyes/Ears/Nose/Throat Exam Surgical H&P Exam: Normal: HEENT, Normal: Heart, Normal: Lungs, Normal: Extremities, Normal: Abdomen, Normal: Skin and Normal: Neurological Plan Diagnosis/Plan: Unchanged (right proximal ureteric eswl with stent removal) I have reviewed the history and physical and performed a pertinent physical examination on my patient. No changes have occurred unless specified.
[2021-09-17] MEDS: Lactated Ringers 1,000 ML 50 ML IVCONT (08:10)
--- NOTE | 2021-09-17 08:46 | P.OP_ITS ---
Operative Note Operative Note Date of Service: 09/17/21 Narrative: PreOperative Diagnosis: right upper ureteric stones with indwelling stent Post Operative Diagnosis: right upper ureteric stones Procedure: right ureteric ESWL with cysto stent remova Surgeon: Dr Rene Hayden Anesthesia: mac/sedation Indications for procedure: The patient understands ESWL may be a staged procedure and subsequent intervention may be required based on imaging after ESWL. They also understand there is a risk of bleeding to the kidney, infection, damage to adjacent organs, and stone migration following the procedure. - Imaging proximal ureteric stone Procedure: After informed consent was verified the patient was brought to the operating room and placed in a supine position. Anesthesia was performed per protocol. Safety pause time-out was performed. Imaging was displayed in the room and laterality confirmed. ESWL was performed. The 1st 500 shocks were performed at 60 hertz. These were performed with increasing power. Once maximum power was reached the rate was increased to 120 hertz - 20 power A total of 3000 shocks were given. Targeted imaging with ultrasound/fluoroscopy showed stone smudging suggestive of disintegration. At completion of procedure cystoscopy performed and stent grasped and removed w ithout difficulty The patient tolerated the procedure well and was transferred to the recovery area upon completion. Post procedure imaging will be organized. There was no evidence for flank discoloration.
--- NOTE | 2021-09-17 08:55 | P.CONAN_ITS ---
[facility] Active Problems Active Problems: All Active Problems (Updated 09/16/21 @ 09:58 by Mahsa Urena NP) MATTY (acute kidney injury) (Acute) Hypertensive urgency (Acute) Hydronephrosis (Acute) Ureteral calculi (Acute) Past Medical History Medical History Depression Hypothyroid Functional capacity: independent ambulation Family History Family history of problems with anesthesia: No Surgical History History of Problems with Anesthesia: No Social History Social History Household Members: Family Housing: House Do you presently have visiting nurse or other home services: No Patient Tobacco Use Status: Never used Tobacco Use of substances other than those prescribed or required for medical reasons: No Are you DNR?: No Advance Directives: No Advance Directives Information Provided: Yes service: No Current occupational status: employed Meds Allergies Allergy/AdvReac Type Severity Reaction Status Date / Time No Known Allergies Allergy Verified 09/09/21 20:50 Active Medications: Current Medications Acetaminophen (Acetaminophen 325 Mg Tablet) 650 mg PO ONCE PRN PRN Reason: Pain, Mild (Pain Scale 1-3) Fentanyl (Fentanyl Citrate/Pf 100 Mcg/2 Ml Vial) 50 mcg IVPUSH Q5M PRN; Protocol PRN Reason: Pain, Severe (Pain Scale 7-10) Promethazine HCl 12.5 mg/ (Sodium Chloride) 50.5 mls @ 202 mls/hr IV ONCE PRN PRN Reason: Nausea and Vomiting Lactated Ringer's (Lr) 1,000 mls @ 50 mls/hr IVCONT .Q20H PRASAD Oxycodone HCl (Oxycodone Hcl Immed Release 5 Mg Tablet) 5 mg PO ONCE PRN PRN Reason: Pain, Severe (Pain Scale 7-10) Home Medications Medication Instructions Recorded Confirmed Last Taken Type levothyroxine 88 mcg tablet 1 tab PO DAILY 09/10/21 09/10/21 09/17/21 History (Synthroid) sertraline 50 mg tablet 1 tab PO DAILY 09/10/21 09/10/21 Unknown History Exam Exam Date and Time: September 17, 2021 0855 Height,Weight and Vital Signs: Height 6 ft 7 in Weight 117.934 kg Last Vital Signs Temp 97.3 F 09/17/21 07:44 Pulse 73 09/17/21 07:44 Resp 16 09/17/21 07:44 BP 140/98 H 09/17/21 07:44 Pulse Ox 96 09/17/21 07:44 O2 Del Method 09/17/21 07:44 Airway Mallampati Class: III Neck ROM: Full Heart: RRR Lungs: CTA Assessment and Plan Final Anesthetic Review Family History of Problems with Anesthesia: No History of Problems with Anesthesia: No ASA Class: II Final Preanesthetic Review: No Changes in Pt Med Stat, Meds/Allgs Chart Reviewed, Consent Obtained/Reviewed and Anes Risks/Benef Reviewed Patient Risk: Low Procedure Risk: Low Anesthetic Plan Anesthetic Plan: MAC: Disposition: Standard PACU
[2021-09-17 09:52] VITALS: BP 147/98; PULSE 65; RESP 16; TEMP 36.4; O2SAT 99
[2021-09-17 09:57] VITALS: BP 155/93; PULSE 57; RESP 13; O2SAT 99
[2021-09-17 10:02] VITALS: BP 142/86; PULSE 62; RESP 15; O2SAT 99
[2021-09-17] MEDS: Phenazopyridine HCL 100 MG TABLET PO (10:04)
[2021-09-17] MEDS: NaPROXEN 500 MG TABLET PO (10:04)
[2021-09-17] MEDS: Furosemide 20 MG/2 ML VIAL 10 MG IVPUSH (10:05)
[2021-09-17 10:07] VITALS: BP 139/95; PULSE 60; RESP 16; O2SAT 98
[2021-09-17 10:22] VITALS: BP 148/92; PULSE 60; RESP 16; TEMP 36.4; O2SAT 98
--- NOTE | 2021-09-17 14:06 | HO.POSTANES ---
Post Anesthesia Evaluation Post Anesthesia Evaluation Vital Signs: Vital Signs Temp Pulse Resp BP Pulse Ox O2 Del Method O2 Flow Rate 09/17/21 10:22 97.6 F 60 16 148/92 H 98 Room Air 09/17/21 10:07 60 16 139/95 H 98 Room Air 09/17/21 10:02 62 15 142/86 H 99 Nasal Cannula with ETCO2 2 09/17/21 09:57 57 13 155/93 H 99 Nasal Cannula with ETCO2 2 09/17/21 09:52 97.6 F 65 16 147/98 H 99 Nasal Cannula with ETCO2 2 09/17/21 07:44 97.3 F 73 16 140/98 H 96 Room Air Anesthesia: General LMA Mental Status: Awake Pain Control: Satisfactory Nausea/Vomiting: None Hydration: Adequate Anesthesia-Related Issues: No Anes. Related Issues
== END 2021-09-17 10:55 | disposition home or self-care (01) ==
PROVIDERS: PCP Internal Medicine; Visit Provider Urology
PROC: (CPT 50590; principal; 2021-09-17 08:10)
DX: N20.1 Calculus of ureter (principal); Z96.0 Presence of urogenital implants; E03.9 Hypothyroidism, unspecified; F32.9 Major depressive disorder, single episode, unspecified; Z79.899 Other long term (current) drug therapy
CPT/HCPCS: 50590; 74018; J1100; J1940; J2250; J2405; J3010